=== PATIENT | female | born 1960 | race Caucasian/White ===

== ENCOUNTER 2016-07-04 14:55 | Outpatient (CLI) ==
--- NOTE | 2016-07-04 16:00 | DI ---
Exam: Five x-rays of the lumbar spine. Comparison: None available. Reason for exam: Left-sided low back pain extending down the left leg FINDINGS: Multilevel degenerative disease is seen with intervertebral body disc space height loss a nd osteophyte formation. There is an age indeterminate compression deformity in the L1 vertebral bod y. A grade 1 retrolithesis is seen of L2 on L3 measuring approximately 7 mm. Loss of intervertebral body disc space height is seen most notably at L1-2, L2-3, and L5-S1. Impression: 1. Age indeterminate compression fracture in the L1 vertebral body with approximately 40-50% vertebr al body height loss. Fracture in the setting without trauma raises concern for a neoplastic process . Recommend MRI. 2. Grade 1 retrolithesis of L2 on L3. 3. Multilevel degenerative disease. Imaging interpretation was discussed directly with the ordering physician at 1555 hours on 7. Report was faxed at the same time.
== END 2016-07-04 14:56 | disposition home or self-care (01) ==
LOC: RAD 14:55
PROVIDERS: ATTEND Family Medicine
DX: M54.42 Lumbago with sciatica, left side (principal)